=== PATIENT | male | born 1960 | race Caucasian/White ===

== ENCOUNTER 2020-01-17 16:00 | Emergency (ER) | payer OTHER ==
[~2020-01-17] VITALS: Ht 175.3 cm; Wt 86.2 kg
[2020-01-17] MEDS ORDERED: CYCLOBENZAPRINE5 MG PO (18:23)
[2020-01-17] MEDS ORDERED: NORCO 5-325 TA1 EAC1 PO (18:23)
[2020-01-17 18:33] VITALS: BP 111/66
== END 2020-01-17 18:34 | disposition home or self-care (01) ==
LOC: ER 16:00
DX: S16.1XXA Strain of muscle, fascia and tendon at neck level, initial encounter (principal); R51 Headache; M25.511 Pain in right shoulder; M25.512 Pain in left shoulder; I10 Essential (primary) hypertension; V89.2XXA Person injured in unspecified motor-vehicle accident, traffic, initial encounter; Y93.89 Activity, other specified; Y92.89 Other specified places as the place of occurrence of the external cause; Y99.8 Other external cause status